=== PATIENT | male | born 1955 | race Two or more races ===

== ENCOUNTER 2016-08-01 23:20 | Inpatient (IN) | payer OTHER ==
[~2016-08-01] VITALS: Ht 175.3 cm; Wt 81.2 kg
--- NOTE | 2016-08-01 23:24 | NUR ---
PT ESTEFANY FROM HOME PT STATES "WAS IN A COURTYARD WITH FAMNILY; HAD 5 SHOTS OF VODKA; FELT WEAK AND LAID HIMSELF ON THE FLOOR"; FSBS 60G/DL BANK GUARD. PT AOX4 ROMANIAN SPEAKING. DENIES CP OR SOB. NO NAD NOTED. NO NVD AT THIS TIME. PT GOWNED AND PLACED ON MONITOR. DR REYES AT BEDSIDE FOR EVAL.
--- NOTE | 2016-08-01 23:25 | NUR ---
IV STARTED ON RIGHT AC 16G, LABS DRAWN.
[2016-08-01] MEDS ORDERED: IV NS 0.9% 1,000 ML ONE (23:27)
[2016-08-01] MEDS ORDERED: IV SET PRIMARY 1 EA INFUS.SET MC ONE (23:27)
[2016-08-01] MEDS ORDERED: DEXTROSE 50%-WATER 50 ML DISP.SYRIN ONE (23:28)
--- NOTE | 2016-08-01 23:29 | NUR ---
BS NOTED 74
[2016-08-01] MEDS ORDERED: IV NS 0.9% 1,000 ML BAG IV ONE (23:30)
[2016-08-01] MEDS ORDERED: DEXTROSE 50%-WATER 50 ML DISP.SYRIN IVP ONE (23:30)
[2016-08-01] MEDS ORDERED: ASPIRIN 81 MG TAB.CHEW PO ONE (23:30)
[2016-08-01] MEDS ORDERED: ASPIRIN 81 MG TAB.CHEW ONE (23:30)
[2016-08-01 23:37] LABS: BASOPHILS # (AUTO) 0.1 /CMM (0.0-0.2); BASOPHILS % (AUTO) 0.6 % (0.0-2.0); EOSINOPHILS # (AUTO) 0.2 /CMM (0.0-0.7); EOSINOPHILS % (AUTO) 1.7 % (0.0-6.0); HEMATOCRIT 46 % (39-51); HEMOGLOBIN 15.3 g/dL (13.5-17.5); LYMPHOCYTES # (AUTO) 5.4 /CMM (0.8-4.8); LYMPHOCYTES % (AUTO) 41.9 % (20.0-44.0); MEAN CORPUSCULAR HEMOGLOBIN 30 PG (26.0-33.0); MEAN CORPUSCULAR HGB CONC 34 g/dl (31.0-36.0); MEAN CORPUSCULAR VOLUME 88 fL (80-96); MONOCYTES # (AUTO) 1.4 /CMM (0.1-1.30); MONOCYTES % (AUTO) 10.5 % (2.0-12.0); NEUTROPHILS # (AUTO) 5.8 /CMM (1.8-8.9); NEUTROPHILS % (AUTO) 45.3 % (43.0-81.0); PLATELET COUNT (AUTO) 273 /CMM (150-450); RDW COEFFICIENT OF VARIATION 13.4 (11.5-15.0); RED BLOOD CELL COUNT(AUTO) 5.17 MIL/uL (4.5-6.0); WHITE BLOOD COUNT (AUTO) 12.9 K/uL (4.3-11.0)
[2016-08-01 23:49] LABS: INR 0.91 (0.87-1.13); PROTHROMBIN TIME 9.7 SECS (9.5-12.7)
[2016-08-01 23:52] LABS: ALANINE AMINOTRANSFERASE 35 U/L (12-78); ALKALINE PHOSPHATASE 50 U/L (46-116); ASPARTATE AMINOTRANSFERASE 19 U/L (15-37); BILIRUBIN,DIRECT 0.1 mg/dL (0.0-0.2); BILIRUBIN,TOTAL 0.2 mg/dL (0.2-1.0); CALCIUM, SERUM 8.7 mg/dL (8.5-10.1); CARBON DIOXIDE 25 mmol/L (21-32); CHLORIDE 108 mmol/L (98-107); CREATININE 1.2 mg/dL (0.6-1.3); GFR 62 mL/min (>60); GLUCOSE 59 mg/dL (74-106); SODIUM SERUM 144 mmol/L (136-145); TOTAL PROTEIN, SERUM 8.1 g/dL (6.4-8.2); UREA NITROGEN, BLOOD 10 mg/dL (7-18)
[2016-08-01 23:54] LABS: POTASSIUM 2.8 mmol/L (3.5-5.1)
[2016-08-01 23:55] LABS: TROPONIN I < 0.017 ng/mL (0.00-0.056)
[2016-08-02] MEDS ORDERED: Magnesium 1 GM/2 ML VIAL IV ONE
[2016-08-02] MEDS ORDERED: Magnesium 1GM/D5W 100ML PREMIX 200 ML IV ONE (00:09)
[2016-08-02] MEDS ORDERED: IV SET PRIMARY PUMP SET 1 EA INFUS.SET MC ONE ×2 (00:09→02:03)
[2016-08-02] MEDS ORDERED: POTASSIUM CHLORIDE 20 MEQ TAB.PRT.SR PO ONE ×2 (00:27)
[2016-08-02] MEDS ORDERED: IV 1/2NS 1000 ML 1,000 ML IV PRN (00:43)
--- NOTE | 2016-08-02 00:47 | NUR ---
REPORT GIVEN TO ELI MALDONADO FOR CONTINUATION OF CARE.
[2016-08-02] MEDS ORDERED: ONDANSETRON HCL/PF 4 MG/2 ML VIAL IVP PRN (01:00)
[2016-08-02] MEDS ORDERED: ACETAMINOPHEN 325 MG TABLET PO PRN (01:00)
[2016-08-02] MEDS ORDERED: Z GUARD REMEDY 2 OZ OINT TP PRN (01:00)
[2016-08-02] MEDS ORDERED: MAGNESIUM HYDROXIDE 30 ML UDC PO PRN (01:00)
[2016-08-02] MEDS ORDERED: MAG HYDROX/AL HYDROX/SIMETH 30 ML UDC PO PRN (01:00)
[2016-08-02] MEDS ORDERED: HYDROCODONE/APAP 5/325MG 1 EACH TABLET PO PRN (01:00)
--- NOTE | 2016-08-02 01:03 | NUR ---
PT TRANSFERED PER [employer]S PROTOCOL.
[2016-08-02 01:30] VITALS: BP 110/71
--- NOTE | 2016-08-02 01:30 | NUR ---
RECEIVED PATIENT FROM ER BY SANDRINE. PATIENT HELPED TO THE BED, ORIENTED TO HIS ROOM FAMILY CAME WITH PATIENT. EDUCATIONS/INSTRUCTIONS GIVEN TO THE PATIENT AND THE FAMILY QUESTIONS ANSWERED
[2016-08-02] MEDS ORDERED: IV 1/2NS 1000 ML 1,000 ML IV ONE (02:03)
--- NOTE | 2016-08-02 02:15 | NUR ---
PATIENT FEELS WEAK, C/O HEADACHE, BLURRED VISION BLOOD SUGAR CHECKED - 81. CONTINUE TO MONITOR
[2016-08-02 05:21] VITALS: BP 102/66
--- NOTE | 2016-08-02 06:15 | NUR ---
PATIENT C/O HEADACHE, PATIENT IS DIAPHORETIC BS CHECKED 91 PATIENT REFUSED IVF AT THIS POINT AND STATED THAT HE WANTS TO GO HOME. PATIENT WAS EXPLAINED THE REASONS HE WAS ADMITTED ALL THE BENEFITS AND RISKS- PATIENT AGREE TO STAY
[2016-08-02 08:00] VITALS: BP 106/61
--- NOTE | 2016-08-02 08:00 | NUR ---
MARKETING PROFESSIONAL NOTE PATIENT IN BED ,ALL NEEDS ATTENDED ,ON TELE MONITOR SR ,ON RA AT THIS TIME,BED IN LOWEST AND LOCKED POSITION , RT AC HL REFUSED TO [facility]S AND IVF AND HAVING BREAKFAST EXPLAIN HOW IMPORTANCE OF THIS STILL REPERFUSED WILL CONT TO ENCOURAGE ,NOT IN ACUTE DISTRES
[2016-08-02] MEDS ORDERED: IBUP-1955 PO (08:30)
[2016-08-02] MEDS ORDERED: CALC-866 PO (08:30)
[2016-08-02] MEDS ORDERED: CYCL5TAB PO (08:30)
[2016-08-02] MEDS ORDERED: ASPI-991 PO (08:30)
--- NOTE | 2016-08-02 10:00 | NUR ---
MANAGER REHAB NOTE CT HEAD DONE ORDERED PHLEBOTOMI DONE ,BLOODD DROWN ORDERED
[2016-08-02 11:10] LABS: CARBON DIOXIDE 24 mmol/L (21-32); CHLORIDE 109 mmol/L (98-107); CREATININE 0.8 mg/dL (0.6-1.3); GFR 99 mL/min (>60); GLUCOSE 107 mg/dL (74-106); POTASSIUM 4.4 mmol/L (3.5-5.1); SODIUM SERUM 140 mmol/L (136-145); UREA NITROGEN, BLOOD 11 mg/dL (7-18)
[2016-08-02 11:14] LABS: MAGNESIUM 2.3 mg/dL (1.8-2.4)
[2016-08-02 11:21] LABS: TROPONIN I < 0.017 ng/mL (0.00-0.056)
[2016-08-02 11:23] LABS: CHOLESTEROL 187 mg/dL (<200); HDL CHOLESTEROL 38 mg/dL (40-60); LDL 124 mg/dL (0-99); THYROID STIMULATING HORMONE 0.663 uIU/mL (0.358-3.74); TRIGLYCERIDES 92 mg/dL (30-150)
[2016-08-02 11:29] LABS: BASOPHILS % (AUTO) 0.5 % (0.0-2.0); EOSINOPHILS # (AUTO) 0.2 /CMM (0.0-0.7); HEMATOCRIT 41 % (39-51); HEMOGLOBIN 13.6 g/dL (13.5-17.5); LYMPHOCYTES # (AUTO) 3.1 /CMM (0.8-4.8); LYMPHOCYTES % (AUTO) 35.9 % (20.0-44.0); MEAN CORPUSCULAR HEMOGLOBIN 30 PG (26.0-33.0); MEAN CORPUSCULAR HGB CONC 33 g/dl (31.0-36.0); MEAN CORPUSCULAR VOLUME 89 fL (80-96); MONOCYTES # (AUTO) 0.9 /CMM (0.1-1.30); MONOCYTES % (AUTO) 11.1 % (2.0-12.0); NEUTROPHILS # (AUTO) 4.3 /CMM (1.8-8.9); NEUTROPHILS % (AUTO) 50.5 % (43.0-81.0); PLATELET COUNT (AUTO) 216 /CMM (150-450); RDW COEFFICIENT OF VARIATION 13.5 (11.5-15.0); RED BLOOD CELL COUNT(AUTO) 4.58 MIL/uL (4.5-6.0); WHITE BLOOD COUNT (AUTO) 8.5 K/uL (4.3-11.0)
--- NOTE | 2016-08-02 13:00 | NUR ---
DIESEL TRUCK DRIVER NOTE PER DR DEBI WETZEL TO DISCHARGE,DISCHARGE INSTRUCTION GIVEN ,INSTRUCTED TO FOLLOW UP WITH PRIMARY CARE DOCTOR AND RETURN FOR ANY CONCERNS TELE MOVED,HL REMOVED,BELONGING SIGNED
--- NOTE | 2016-08-02 13:16 | NUR ---
MEND WORKER NOTE WENT HOME WITH IN STABLE CONDITION
== END 2016-08-02 12:35 | disposition home or self-care (01) | DRG 775 ==
LOC: ER 23:34 → TELE1 08-02 01:16
PROVIDERS: ADMIT Contractor; ATTEND Internal Medicine
DX: F10.129 Alcohol abuse with intoxication, unspecified (principal); G93.41 Metabolic encephalopathy; R55 Syncope and collapse; I10 Essential (primary) hypertension; E11.9 Type 2 diabetes mellitus without complications; D72.829 Elevated white blood cell count, unspecified; E87.6 Hypokalemia; E78.5 Hyperlipidemia, unspecified; K21.9 Gastro-esophageal reflux disease without esophagitis; F17.210 Nicotine dependence, cigarettes, uncomplicated; Z79.84 Long term (current) use of oral hypoglycemic drugs; I34.0 Nonrheumatic mitral (valve) insufficiency
CPT/HCPCS: 36415; 70450-TC; 71010-TC; 80048-TC; 80061-TC; 80076-TC; 82962-TC; 83735-TC; 84100-TC; 84443-TC; 84484-TC; 85025-TC; 85730-TC; 86850-TC; 87081-TC; 93307-TC; A4606; J3475; J3490; J7030; Z7610

== ENCOUNTER 2024-06-01 08:39 | Inpatient (IN) | payer OTHER, MEDICARE ==
[~2024-06-01] VITALS: Ht 172.7 cm; Wt 81.6 kg
[~2024-06-01 08:39] MED LIST: ASPI-1420 PO; CALC-770 PO; CYCL5TAB PO; IBUP-1955 PO
[2024-06-01 12:00] VITALS: O2SAT 98
[2024-06-01] MEDS ORDERED: MORPHINE SULFATE INJ 4 MG/ML DISP.SYRIN ONE (12:00)
[2024-06-01] MEDS ORDERED: ONDANSETRON HCL/PF 4 MG/2 ML VIAL ONE (12:00)
[2024-06-01] MEDS: MORPHINE SULFATE INJ 2 MG/ML DISP.SYRIN IV ONE (12:13)
[2024-06-01] MEDS: ONDANSETRON HCL/PF - ER 4 MG/2 ML VIAL IV ONE (12:14)
[2024-06-01 12:43] LABS: CALCIUM, SERUM 9.1 mg/dL (8.5-10.1); POTASSIUM 3.8 mmol/L (3.5-5.1)
[2024-06-01 12:45] LABS: BASOPHILS % (AUTO) 0.6 % (0.0-2.0); EOSINOPHILS # (AUTO) 0.1 K/uL (0.0-0.7); EOSINOPHILS % (AUTO) 1.4 % (0.0-6.0); HEMATOCRIT 44 % (39-51); LYMPHOCYTES # (AUTO) 2.5 K/uL (0.8-4.8); LYMPHOCYTES % (AUTO) 42.8 % (20.0-44.0); MEAN CORPUSCULAR HEMOGLOBIN 30 PG (26.0-33.0); MEAN CORPUSCULAR HGB CONC 34 g/dl (31.0-36.0); MEAN CORPUSCULAR VOLUME 88 fL (80-96); MONOCYTES # (AUTO) 0.5 K/uL (0.1-1.30); MONOCYTES % (AUTO) 8.9 % (2.0-12.0); NEUTROPHILS # (AUTO) 2.7 K/uL (1.8-8.9); NEUTROPHILS % (AUTO) 46.3 % (43.0-81.0); PLATELET COUNT (AUTO) 226 K/uL (150-450); RED BLOOD CELL COUNT(AUTO) 4.96 MIL/uL (4.5-6.0); RED CELL DISTRIBUTION WIDTH 13.4 % (11.5-15.0); WHITE BLOOD COUNT (AUTO) 5.8 K/uL (4.3-11.0)
[2024-06-01 12:47] LABS: ALBUMIN 3.8 g/dL (3.4-5.0); BILIRUBIN,TOTAL 0.6 mg/dL (0.2-1.0); TOTAL PROTEIN, SERUM 7.9 g/dL (6.4-8.2)
[2024-06-01] MEDS ORDERED: CALC500T88 PO (12:55)
[2024-06-01] MEDS ORDERED: ROSU10TA2 PO (12:55)
[2024-06-01] MEDS ORDERED: CLON0.1T PO (12:55)
[2024-06-01] MEDS ORDERED: GABA300C PO (12:55)
[2024-06-01] MEDS ORDERED: BACL10TA PO (12:55)
[2024-06-01] MEDS ORDERED: RANO500T6 PO (12:55)
[2024-06-01] MEDS ORDERED: VALS1TAB8 PO (12:55)
[2024-06-01] MEDS ORDERED: ERGO500093 PO (12:55)
[2024-06-01] MEDS ORDERED: COLC0.6T67 PO (12:55)
[2024-06-01] MEDS ORDERED: ALIR75PE SQ (12:55)
[2024-06-01] MEDS ORDERED: AMLO-213 PO (12:55)
[2024-06-01] MEDS ORDERED: ONDANSETRON HCL/PF 4 MG/2 ML VIAL IVP PRN (13:30)
[2024-06-01] MEDS ORDERED: ACETAMINOPHEN 325 MG TABLET PO PRN (13:30)
[2024-06-01] MEDS: ENOXAPARIN SODIUM 40 MG/0.4 ML DISP.SYRIN SQ SCH (14:40)
[2024-06-01] MEDS ORDERED: IV NS 0.9% 250 ML IV ONE (14:44)
[2024-06-01] MEDS ORDERED: CT SWABBABLE VALVE TRANS SET 1 EA INFUS.SET MC ONE (14:44)
[2024-06-01] MEDS ORDERED: IOHEXOL-350 100 ML VIAL IV ONE (14:44)
[2024-06-01] MEDS: MORPHINE SULFATE INJ 2 MG/ML DISP.SYRIN IV PRN (15:58)
[2024-06-01 16:00] VITALS: BP 162/97; TEMP 97.7; O2SAT 96
[2024-06-01] MEDS: BACLOFEN (10 MG) 10 MG TABLET PO PRN (17:05)
[2024-06-01] MEDS: COLCHICINE 0.6 MG TABLET PO SCH (17:06)
[2024-06-01 20:22] VITALS: BP 140/78; TEMP 97.2; O2SAT 95
[2024-06-01] MEDS: ATORVASTATIN 40 MG TABLET PO SCH (21:02)
[2024-06-01] MEDS: RANOLAZINE 500 MG TAB.ER.12H PO SCH (21:02)
[2024-06-01] MEDS: GABAPENTIN 300 MG CAPSULE PO SCH (21:02)
[2024-06-01] MEDS: AMLODIPINE BESYLATE 10 MG TABLET PO SCH (21:03)
[2024-06-02 07:18] LABS: INR 0.97 (0.91-1.10); PARTIAL THROMBOPLASTIN TIME 29.3 SEC (24.3-34.3); PROTHROMBIN TIME 10.3 SECS (9.2-11.1)
[2024-06-02 07:24] LABS: BASOPHILS % (AUTO) 0.8 % (0.0-2.0); EOSINOPHILS # (AUTO) 0.2 K/uL (0.0-0.7); EOSINOPHILS % (AUTO) 3.8 % (0.0-6.0); HEMATOCRIT 40 % (39-51); HEMOGLOBIN 13.4 g/dL (13.5-17.5); LYMPHOCYTES # (AUTO) 2.2 K/uL (0.8-4.8); MEAN CORPUSCULAR HEMOGLOBIN 29 PG (26.0-33.0); MEAN CORPUSCULAR HGB CONC 34 g/dl (31.0-36.0); MEAN CORPUSCULAR VOLUME 87 fL (80-96); MONOCYTES # (AUTO) 0.5 K/uL (0.1-1.30); MONOCYTES % (AUTO) 10.6 % (2.0-12.0); NEUTROPHILS # (AUTO) 2.1 K/uL (1.8-8.9); NEUTROPHILS % (AUTO) 40.8 % (43.0-81.0); PLATELET COUNT (AUTO) 223 K/uL (150-450); RED BLOOD CELL COUNT(AUTO) 4.59 MIL/uL (4.5-6.0); RED CELL DISTRIBUTION WIDTH 13.7 % (11.5-15.0)
[2024-06-02 07:50] LABS: ALBUMIN 3.2 g/dL (3.4-5.0); BILIRUBIN,TOTAL 0.4 mg/dL (0.2-1.0); CALCIUM, SERUM 8.4 mg/dL (8.5-10.1); MAGNESIUM 2.1 mg/dL (1.8-2.4); PHOSPHORUS 4.4 mg/dL (2.5-4.9); TOTAL PROTEIN, SERUM 6.6 g/dL (6.4-8.2)
[2024-06-02 08:00] VITALS: BP 117/71; TEMP 97.6; O2SAT 96
[2024-06-02 08:13] LABS: FREE PSA 0.29 ng/mL (0.00-45); PROSTATE SPECIFIC ANTIGEN SCR 2.07 ng/mL (0.00-4.00)
[2024-06-02] MEDS: HYDROCHLOROTHIAZIDE 25 MG TABLET PO SCH (08:19)
[2024-06-02] MEDS: VALSARTAN 80 MG TABLET PO SCH (08:20)
[2024-06-02] MEDS ORDERED: ASPIRIN EC 81 MG TABLET.DR PO SCH (09:00)
[2024-06-02] MEDS: HYDROMORPHONE 1 MG/1 ML DISP.SYRIN IV PRN (10:06)
[2024-06-02] MEDS ORDERED: GADOTERATE MEGLUMINE 10 MMOL/20 ML VIAL IV ONE (15:29)
[2024-06-02 20:00] VITALS: BP 131/92; TEMP 97.7; O2SAT 96
[2024-06-03 08:00] VITALS: BP 152/79; TEMP 97.7; O2SAT 98
[2024-06-03 08:12] LABS: AFP, TUMOR MARKER 3.1 ng/mL (0.0-8.4); IMMUNOGLOBULIN A, SERUM 172 mg/dL (61-437); IMMUNOGLOBULIN G, SERUM 1218 mg/dL (603-1613); IMMUNOGLOBULIN M, SERUM 71 mg/dL (20-172)
[2024-06-03 11:08] LABS: FREE KAPPA LT CHAINS SERUM 19.3 mg/L (3.3-19.4); FREE LAMBDA LT CHAIN SERUM 13.5 mg/L (5.7-26.3); KAPPA/LAMBDA RATIO SERUM 1.43 (0.26-1.65)
[2024-06-03] MEDS ORDERED: FLUMAZENIL 0.5 MG VIAL IV PRN (13:30)
[2024-06-03] MEDS ORDERED: MIDAZOLAM HCL 2 MG/2ML VIAL IV PRN (13:30)
[2024-06-03] MEDS ORDERED: FENTANYL PF 250MCG/5ML AMPUL IV PRN (13:30)
[2024-06-03] MEDS ORDERED: NALOXONE PREFILLED SYRINGE 2 MG/2 ML SYRINGE IV PRN (13:30)
[2024-06-03 15:08] LABS: *SPE ALBUMIN 3.1 g/dL (2.9-4.4); *SPE ALPHA-1-GLOBULIN 0.3 g/dL (0.0-0.4); *SPE ALPHA-2-GLOBULIN 0.7 g/dL (0.4-1.0); *SPE BETA GLOBULIN 0.9 g/dL (0.7-1.3); *SPE GLOBULIN, TOTAL 3.2 g/dL (2.2-3.9); *SPE M-SPIKE 0.4 g/dL (Not Observed); *SPE PROTEIN TOTAL 6.3 g/dL (6.0-8.5); *SPEGAMMA GLOBULIN 1.2 g/dL (0.4-1.8)
[2024-06-03] MEDS ORDERED: ENOXAPARIN SODIUM 40 MG/0.4 ML DISP.SYRIN SQ SCH (21:00)
[2024-06-04] MEDS ORDERED: ASPIRIN 81 MG TAB.CHEW PO SCH (09:00)
[2024-06-04 13:10] LABS: BETA-2 MICROGLOBULIN, SERUM 1.5 mg/L (0.6-2.4)
== END 2024-06-03 17:45 | disposition home or self-care (01) | DRG 181 ==
LOC: ER 08:50 → MED 13:00
PROVIDERS: ADMIT Internal Medicine; ATTEND Internal Medicine
PROC: 0BBG3ZX Excision of Left Upper Lung Lobe, Percutaneous Approach, Diagnostic (ICD-10-PCS; principal; 2024-06-03)
DX: C34.12 Malignant neoplasm of upper lobe, left bronchus or lung (principal); C78.7 Secondary malignant neoplasm of liver and intrahepatic bile duct; C79.51 Secondary malignant neoplasm of bone; C34.11 Malignant neoplasm of upper lobe, right bronchus or lung; M54.50 Low back pain, unspecified; V89.2XXA Person injured in unspecified motor-vehicle accident, traffic, initial encounter; E11.9 Type 2 diabetes mellitus without complications; E66.9 Obesity, unspecified; E78.5 Hyperlipidemia, unspecified; I10 Essential (primary) hypertension; I25.10 Atherosclerotic heart disease of native coronary artery without angina pectoris; J44.9 Chronic obstructive pulmonary disease, unspecified; K21.9 Gastro-esophageal reflux disease without esophagitis; Z71.6 Tobacco abuse counseling; F17.210 Nicotine dependence, cigarettes, uncomplicated; Z86.19 Personal history of other infectious and parasitic diseases; M48.061 Spinal stenosis, lumbar region without neurogenic claudication; Z68.27 Body mass index [BMI] 27.0-27.9, adult; Y93.9 Activity, unspecified; Y92.410 Unspecified street and highway as the place of occurrence of the external cause
CPT/HCPCS: 36415; 70450-TC; 70486-TC; 71045-TC; 71260-TC; 72125-TC; 72131-TC; 72156-TC; 72157-TC; 72158-TC; 73590-TC; 77012-TC; 80053-TC; 82105; 82232; 82378; 82784; 83735-TC; 84100-TC; 84153-TC; 84154-TC; 84155; 84165; 85025-TC; 85610-TC; 85730-TC; 86301; 86334; A9575; G0378; J1171; J1650; J2250; J2270; J2405; J3010; J7050; Q9967